=== PATIENT | male | born 1990 | race Caucasian/White ===

== ENCOUNTER 2017-02-15 02:47 | Emergency (ER) | payer MEDICAID ==
[2017-02-15 02:47] VITALS: BMI 25.0
--- NOTE | 2017-02-15 02:59 | ED PDOC ---
Arrival/HPI - General Historian: Patient - History of Present Illness Time/Duration: < week (2-3 days) Symptom Onset: Sudden Symptom Course: Unchanged Quality: Aching Severity Level: 6 Activities at Onset: Other (football) - General Chief Complaint: Upper Extremity Problem/Injury Time Seen by Provider: 02/15/17 02:55 - History of Present Illness Narrative History of Present Illness (Text): 26 M with NO PMH presents to ED for complaint of shoulder injury. Patient was playing football 2-3 days ago and was being tackled when his shoulder popped out. Patinet popped it back into placed immediately after. Patient decided not to got to ED or see a physician initially. Today, pain was worse ad he could not slleep so he decided to come in. Patient rates pain as moderate. He describes it as constant and throbbing in R shoulder without radiation. He has pain with all movement and decreased ROM. He denies numbness/tingling in affect arm/hand. (Davy Richard) Past Medical History - Provider Review Nursing Documentation Reviewed: Yes - Travel History Have you recently traveled outside [place] w/in the past 3 mons?: No - Past History Past History: No Previous - Infectious Disease Hx of Infectious Diseases: None - Tetanus Immunization Tetanus Immunization: Unknown - Past Medical History Past Medical History: No Previous - Psychiatric Hx Depression: No Hx Emotional Abuse: No Hx Physical Abuse: No Hx Substance Use: Yes (pancho) - Past Surgical History Past Surgical History: No Previous - Anesthesia Hx Anesthesia: No - Suicidal Assessment Feels Threatened In Home Enviroment: No Family/Social History - Physician Review Nursing Documentation Reviewed: Yes Family/Social History: Unknown Family HX Smoking Status: Never Smoked Hx Alcohol Use: Yes Hx Substance Use: Yes (pancho) Substance used: QUIT CANNABIS Hx Substance Use Treatment: No Allergies/Home Meds Allergies/Adverse Reactions: Allergies seasonal Allergy (Uncoded 04/29/16 12:29) CONGESTION Home Medications: Home Meds Medication Instructions Recorded Confirmed No Known Home Med 04/29/16 02/15/17 Review of Systems - Review of Systems Constitutional: absent: Fatigue, Weight Change, Fevers Eyes: absent: Vision Changes ENT: absent: Hearing Changes Respiratory: absent: SOB, Cough, Wheezing Cardiovascular: absent: Chest Pain, Palpitations, Syncope Gastrointestinal: absent: Abdominal Pain, Diarrhea, Nausea, Vomiting Genitourinary Male: absent: Dysuria, Frequency, Hematuria Musculoskeletal: Arthralgias, Myalgias Skin: absent: Rash, Skin Lesions Neurological: absent: Headache, Dizziness Endocrine: absent: Diaphoresis, Polyuria, Polydipsia Hemo/Lymphatic: absent: Adenopathy, Easy Bleeding, Easy Bruising Psychiatric: absent: Anxiety, Depression, Suicidal Ideation Physical Exam Vital Signs Reviewed: Yes Temperature: Afebrile Blood Pressure: Normal Pulse: Regular Respiratory Rate: Normal Appearance: Positive for: Well-Appearing, Non-Toxic, Comfortable Pain Distress: Mild Mental Status: Positive for: Alert and Oriented X 3 - Systems Exam Head: Present: Atraumatic, Normocephalic Pupils: Present: PERRL Extroacular Muscles: Present: EOMI Conjunctiva: Present: Normal Mouth: Present: Moist Mucous Membranes Neck: Present: Normal Range of Motion, Trachea Midline Respiratory/Chest: Present: Clear to Auscultation, Good Air Exchange. No: Respiratory Distress Cardiovascular: Present: Regular Rate and Rhythm, Normal S1, S2, Peripheal Pulses Present Abdomen: Present: Normal Bowel Sounds. No: Tenderness, Distention, Peritoneal Signs, Rebound, Guarding Back: No: CVA Tenderness Upper Extremity: Present: NORMAL PULSES, Tenderness (R shoulder), Swelling (R shoulder), Neurovascularly Intact, Capillary Refill < 2s. No: Normal ROM Lower Extremity: Present: NORMAL PULSES, Normal ROM, Neurovascularly Intact, Capillary Refill < 2 s Neurological: Present: GCS=15, CN II-XII Intact, Speech Normal, Motor Func Grossly Intact, Normal Sensory Function Skin: Present: Warm, Dry, Normal Color Psychiatric: Present: Alert, Oriented x 3, Normal Insight, Normal Concentration Medical Decision Making ED Course and Treatment: R shoulder XR, Toradol Shoulder XR negative as per ED physician. Patient will be placed in immobilizer. Patient to follow up with Ortho clinic in [place] and PMD within 2- 3 days. Patient medically stable for discharge. He verbalized understanding and agreement. (Davy Richard) Patient Seen With Resident: In agreement with resident note which contains more details about the patient. Patient was seen and evaluated with resident. Came up with plan and treatment together.' (Ady Amador) - RAD Interpretation Radiology Orders: 02/15/17 03:06 SHOULDER RIGHT [RAD] Stat - Medication Orders Current Medication Orders: Discontinued Medications Ketorolac Tromethamine (Toradol) 60 mg IM STAT STA Stop: 02/15/17 03:07 Last Admin: 02/15/17 03:40 Dose: 60 mg - PA / [employer] AND FIELD COACH / Resident Statement / has reviewed & agrees with the documentation as recorded. / has examined the patient and agrees with the treatment plan. Disposition/Present on Arrival - Present on Arrival Any Indicators Present on Arrival: No History of DVT/PE: No History of Uncontrolled Diabetes: No Urinary Catheter: No History of Decub. Ulcer: No History Surgical Site Infection Following: None - Disposition Have Diagnosis and Disposition been Completed?: Yes Disposition Time: 03:38 Patient Plan: Discharge - Disposition Diagnosis: Shoulder strain Disposition: HOME/ ROUTINE Condition: GOOD Discharge Instructions (ExitCare): Shoulder Dislocation (ED), Shoulder Sprain ( ED) Additional Instructions: Thank you for letting us take care of you today. Your provider was Dr. Richard. You were treated for Shoulder strain. The emergency medical care you received today was directed at your acute symptoms. If you were prescribed any medication, please fill it and take as directed. It may take several days for your symptoms to resolve. Return to the Emergency Department if your symptoms worsen, do not improve, or if you have any other problems. Please contact your doctor or call one of the physicians/clinics you have been referred to that are listed on the Patient Visit Information form that is included in your discharge packet. Bring any paperwork you were given at discharge with you along with any medications you are taking to your follow up visit. Our treatment cannot replace ongoing medical care by a primary care provider (PCP) outside of the emergency department. Thank you for allowing the [facility] team to be part of your care today. If you had an X-Ray or CT scan: A Radiologist will review the ED reading if any change in treatment is needed we will contact you. If you had a blood, urine, or wound culture: It will take several days for the results, if any change in treatment is needed we will contact you. If you had an STI test: It will take 48 hours for the results. Please call after 1 week if you have not heard back. Take OTC ibuprofen for pain Follow up with Orthopedic clinic Follow up with PMD within 2-3 days Please return to ERD if symptoms persist or condition worsens Referrals: Paula Mast MD [Primary Care Provider] - Follow up with primary [facility] at [place] [Outside] - Follow up with primary Forms: [place] (Green[place]ic)
[2017-02-15 03:23] VITALS: BP 136/97; PULSE 98; RESP 16; TEMP 98.3; O2SAT 99
--- NOTE | 2017-02-15 09:19 | RAD ---
PROCEDURE: Radiographs of the Right Shoulder HISTORY: shoulder injury COMPARISON: Right shoulder x-ray 09/24/2014. FINDINGS: BONES: Normal. No fracture. No suspicious lytic or blastic process JOINTS: Normal. Glenohumeral and acromioclavicular joints preserved. No osteoarthritis. SOFT TISSUES: Normal. OTHER FINDINGS: None. IMPRESSION: Normal radiographs of the right shoulder. No significant interval change compared to 09/24/2014.
== END 2017-02-15 04:02 | disposition home or self-care (01) ==
LOC: ED 02:47
DX: S46.911A Strain of unspecified muscle, fascia and tendon at shoulder and upper arm level, right arm, initial encounter (principal); W51.XXXA Accidental striking against or bumped into by another person, initial encounter; Y93.61 Activity, american tackle football; Y92.39 Other specified sports and athletic area as the place of occurrence of the external cause
CPT/HCPCS: 73030; 96372; 99283; J1885